=== PATIENT | female | born 1990 | race Two or more races ===

== ENCOUNTER 2018-10-09 08:40 | Day surgery (SDC) | payer OTHER ==
[2018-10-09] MEDS ORDERED: DOXYCYCLINE HY100 M3 PO (12:02)
[2018-10-09] MEDS ORDERED: Tylenol #3 PO (12:02)
== END 2018-10-09 16:00 | disposition home or self-care (01) ==
LOC: CIR.AMB 08:40
DX: O02.1 Missed abortion (principal); Z3A.08 8 weeks gestation of pregnancy

== ENCOUNTER → 2019-09-03 | Outpatient (CLI) | payer OTHER ==
[~2019-09-03] MED LIST: DOXYCYCLINE HY100 M3 PO; Tylenol #3 PO
== END | disposition home or self-care (01) ==
LOC: PRENATAL 10:00
PROVIDERS: ATTEND Obstetrics & Gynecology Maternal & Fetal Medicine
DX: O35.0XX1 Maternal care for (suspected) central nervous system malformation in fetus, fetus 1 (principal); O98.512 Other viral diseases complicating pregnancy, second trimester; O35.3XX1 Maternal care for (suspected) damage to fetus from viral disease in mother, fetus 1; Z36.89 Encounter for other specified antenatal screening; Z3A.34 34 weeks gestation of pregnancy

== ENCOUNTER 2019-10-07 15:26 | Inpatient (IN) | payer OTHER ==
[~2019-10-07] VITALS: Ht 165.1 cm; Wt 86.2 kg
[2019-10-07] MEDS ORDERED: PRENATAL TABLE1 EACH PO (16:30)
[2019-10-07] MEDS ORDERED: ASPIR 8181 MG PO (16:30)
[2019-10-08] MEDS ORDERED: TYLENOL325 MG PO (06:06)
[2019-10-10] MEDS ORDERED: COLACE100 MG PO (07:05)
== END 2019-10-10 10:34 | disposition home or self-care (01) | DRG 768 ==
LOC: LDR 15:26 → SURG-SUITE 10-08 19:58
PROVIDERS: ADMIT Obstetrics & Gynecology; ATTEND Obstetrics & Gynecology
PROC: 10E0XZZ Delivery of Products of Conception, External Approach (ICD-10-PCS; principal; 2019-10-08)
PROC: 0DQR0ZZ Repair Anal Sphincter, Open Approach (ICD-10-PCS; 2019-10-08)
PROC: 4A1HXFZ Monitoring of Products of Conception, Cardiac Rhythm, External Approach (ICD-10-PCS; 2019-10-08)
PROC: 3E0P7VZ Introduction of Hormone into Female Reproductive, Via Natural or Artificial Opening (ICD-10-PCS; 2019-10-08)
DX: O70.20 Third degree perineal laceration during delivery, unspecified (principal); Z37.0 Single live birth; Z3A.39 39 weeks gestation of pregnancy; Z20.828 Contact with and (suspected) exposure to other viral communicable diseases

== ENCOUNTER 2021-09-22 07:55 | Outpatient (CLI) | payer OTHER ==
[~2021-09-22 07:55] MED LIST changes: +ASPIR 8181 MG PO; +COLACE100 MG PO; +PRENATAL TABLE1 EACH PO; +TYLENOL325 MG PO
== END 2021-09-22 09:42 | disposition home or self-care (01) ==
LOC: PRENATAL 07:55
PROVIDERS: ATTEND Obstetrics & Gynecology Maternal & Fetal Medicine
DX: O35.0XX0 Maternal care for (suspected) central nervous system malformation in fetus, not applicable or unspecified (principal); O35.3XX0 Maternal care for (suspected) damage to fetus from viral disease in mother, not applicable or unspecified; Z3A.21 21 weeks gestation of pregnancy

== ENCOUNTER 2022-01-17 00:30 | Inpatient (IN) | payer OTHER ==
[~2022-01-17] VITALS: Ht 165.1 cm; Wt 97.1 kg
[2022-01-20] MEDS ORDERED: NAPR500T14 PO (09:34)
== END 2022-01-20 15:49 | disposition home or self-care (01) | DRG 807 ==
LOC: LDR 00:30 → OB/GYN 01-18 15:40
PROVIDERS: ADMIT Obstetrics & Gynecology; ATTEND Obstetrics & Gynecology
PROC: 4A1HXCZ Monitoring of Products of Conception, Cardiac Rate, External Approach (ICD-10-PCS; 2022-01-17)
PROC: 10E0XZZ Delivery of Products of Conception, External Approach (ICD-10-PCS; principal; 2022-01-18)
PROC: 0KQM0ZZ Repair Perineum Muscle, Open Approach (ICD-10-PCS; 2022-01-18)
PROC: 0UQMXZZ Repair Vulva, External Approach (ICD-10-PCS; 2022-01-18)
DX: O70.1 Second degree perineal laceration during delivery (principal); Z37.0 Single live birth; O71.82 Other specified trauma to perineum and vulva; Z3A.38 38 weeks gestation of pregnancy; Z20.822 Contact with and (suspected) exposure to COVID-19